=== PATIENT | male | born 1980 | race Caucasian/White ===

== ENCOUNTER 2016-06-14 11:13 | Emergency (ER) | payer BC, OTHER ==
--- NOTE | 2016-06-14 12:37 | ED CLINICAL REPORT ---
Clinical Report - Physicians/Mid Levels [facility] [address] [place] [address] 06/14/2016 11:19 [id number] Time Seen: 12:04 Jun 14 2016. Arrived- By private vehicle. Historian- patient. HISTORY OF PRESENT ILLNESS Chief Complaint: (pain to r/l great toe). The injury happened 2 days. Patient is experiencing mild pain. (Patient reports pain worsening over the last 7 days to the right and great toe. Reports history of similar. He was taking Motrin at home without relief. Denies any trauma. Denies fevers or chills. Denies any drainage. Reports has been self medicating with beer). REVIEW OF SYSTEMS All systems otherwise negative, except as recorded above. PAST HISTORY The patient has not had a prior injury to the same area. Problems: Sprain. Prior Injury, Same Area. Lifestyle / Substance Problems. Myofascial Strain. Anxiety Reaction. Back Injury. Back Pain. Dental Pain. Dental Caries. Hypertension. Asthma. Bronchitis. Depression. Gastritis. Glaucoma. Gout. Tetanus Status. Immunizations. Additional Surgeries: Abdominal Hernia Repair. Ankle surgery x 4. Hernia Repair. Medications: Ibuprofen Oral, PRN. Allergies: No Known Drug Allergy. SOCIAL HISTORY Smoker- current status unknown. Alcohol use. ADDITIONAL NOTES The nursing notes have been reviewed. PHYSICAL EXAM Vital Signs: 06/14/2016 11:27 BP: 150/86. HR: 111. RR: 18. O2 saturation: 97%. Temp: 98.2 F. Appearance: Alert. Head: Head atraumatic. CVS: Tachycardia. Heart sounds normal. Respiratory: No respiratory distress. Breath sounds normal. Skin: Skin intact. Skin warm. Extremities: Base of the right 5th metatarsal. No tenderness. Right dorsal foot. No tenderness or swelling. Left dorsal foot. No tenderness. Right great toe: tenderness and mild erythema of the proximal phalanx. No puncture wound or deformity. No subungual hematoma. Left great toe: mild erythema and tenderness of the proximal phalanx. No ecchymosis or foreign body. No limitation in movement. No subungual hematoma or amputation. Right heel. No tenderness. Neuro, Vascular and Tendons: Vascular status intact. Motor intact. Gait: Normal gait. PROGRESS AND PROCEDURES Course of Care: there is no warmth to the area, most consistent with prior history of gout, we'll treat for such. Patient reports he can colchicine and allopurinol in the past, however has not had good follow-up with his primary care provider. there has been no trauma. No drainage, no abscess. No fluctuance. Patient is stable. Patient/family counseled. Disposition: Discharged. CLINICAL IMPRESSION Acute gout with polyarthritis. INSTRUCTIONS ( [facility]). Prescription Medications: Hydrocodone/APAP 5mg / 325mg: take 1 orally every 6 hours. Dispense ten (10). No refill. Indomethacin 25 mg capsules: take 1-2 capsules orally every 6 hours for 5 days, as needed for pain or swelling. Dispense twenty (20). Colchicine. Dispense fifteen (15). No refills. (Initial: 1.2 mg at the first sign of flare, followed in 1 hour with a single dose of 0.6 . Then one tab po bid for 5 days. qt of 15) Follow-up: Follow up with your doctor in three days. Follow-up with: Nelly Lares MD, Family Practice, , [facility], [address] [place] [address] Follow up. Call for the next available appointment. (Electronically signed by Janna Schneider P.A.-C 06/14/2016 13:51)
--- NOTE | 2016-06-14 12:37 | ED NURSING NOTES ---
Clinical Report - Nurses [facility] [address] [place] [address] 06/14/2016 11:19 [id number] TRI[facility] Triage time 11:27. Acuity: LEVEL 4. Chief Complaint: RIGHT LOWER EXTREMITY PAIN. Location of symptoms- (Feet bilat red, pain in the toe area. Lt foot pain in the ankle). LEFT LOWER EXTREMITY PAIN. Alert. No acute distress. SEPSIS SCREEN: Sepsis Screen: negative. Negative (no infection suspected/documented). GORDON COMA SCORE: [place] Coma Scale: 15- eyes open spontaneously (4); best verbal response- oriented x 4 (5); best motor response- obeys commands (6). --11:34 Briseida Mitchell R.N. 11:27 06/14/16. BP: 150/86 taken on the left arm, while sitting. HR: 111. RR: 18. O2 saturation: 97%. Temp: 98.2 F. --11:34 Briseida Mitchell R.N. Weight: 127 kg. Height/Length: 71 inches Per Patient. BMI: 39.1. --11:28 Briseida Mitchell R.N. Medications Ibuprofen Oral, PRN. --11:32 Briseida Mitchell R.N. Allergies No Known Drug Allergy. --11:32 Briseida Mitchell R.N. Medication/allergy information source: the patient. --11:34 Briseida Mitchell R.N. History Arrived by private vehicle. Historian: patient. No primary care physician. No injury occurred. This occurred (2 days ago). It is described as radiating (toes to the ankle). Provoking / relieving factors: worsened by standing and walking; relieved by sitting, lying down and Rx meds. The patient has had trouble walking. The patient has been limping when trying to walk. He has had similar symptoms previously. 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 PAST MEDICAL HX: Tetanus status: unknown. SOCIAL HX: Heavy tobacco smoker (cigarette)- less than 1 pack per day. Alcohol use; consumes beer weekly. No drug use. FALL RISK ASSESSMENT: Fall risk assessment completed. No fall risk identified. NUTRITIONAL RISK ASSESSMENT: The nutritional risk assessment revealed no deficiencies. FUNCTIONAL ASSESSMENT: Functional assessment: no impairments noted. LEARNING NEEDS ASSESSMENT: The learning needs assessment revealed no barriers. SKIN INTEGRITY ASSESSMENT: Skin integrity risk assessment completed. No skin integrity risk identified. --11:34 Briseida Mitchell R.N. PROBLEMS: Sprain. Prior Injury, Same Area. Lifestyle / Substance Problems. Myofascial Strain. Anxiety Reaction. Back Injury. Back Pain. Dental Pain. Dental Caries. Hypertension. Asthma. Bronchitis. Depression. Gastritis. Glaucoma. Gout. Tetanus Status. --11:33 Briseida Mitchell R.N. Carpal Tunnel Syndrome [RuleOut]. --11:33 Briseida Mitchell R.N. ADDITIONAL SURGERIES: Abdominal Hernia Repair. Ankle surgery x 4. Hernia Repair. --11:33 Briseida Mitchell R.N. Interventions ID band on patient. To room. --11:34 Briseida Mitchell R.N. PHYSICAL ASSESSMENT Ambulatory to room. GENERAL / NEURO / PSYCH: Appears in pain and anxious. EXTREMITIES: Erythema on the extremities. Limited ROM present. Increased warmth on the extremities. Lower extremity edema. Right ankle. Right foot. Left ankle. Left foot. SKIN: Skin is warm and dry. --11:36 Briseida Mitchell R.N. NURSING PROGRESS NOTES Extremity elevated. Two patient identifiers checked. Call light placed in reach. Side rails up x 1. Bed placed in lowest position. Brakes of bed on. Patient ready for evaluation. --11:36 Briseida Mitchell R.N. DISPOSITION / DISCHARGE 12:45. Reviewed medication(s) side effects, precautions, dosing and course information. Prescription(s) given to the patient. Patient verbalized understanding. Written instructions provided in Marshallese. The patient was discharged home. He left the Emergency Department ambulatory and via private vehicle. Patient driving. Medication list reviewed and validated. --20:24 Briseida Mitchell R.N. 12:45 06/14/16. BP: 140/70. HR: 98. RR: 18. O2 saturation: 99%. Temp: deferred. Pain level now: 12/11. 11:27 06/14/16. BP: 150/86 taken on the left arm, while sitting. HR: 111. RR: 18. O2 saturation: 97%. Temp: 98.2 F. --20:24 Briseida Mitchell R.N. Locked/Released at 06/15/2016 22:45 by Briseida Mitchell R.N.
--- NOTE | 2016-06-14 12:37 | ED NURSING NOTES ---
Clinical Report - Nurses [facility] [address] [place] [address] 06/14/2016 11:19 [id number] TRI[facility] Triage time 11:27. Acuity: LEVEL 4. Chief Complaint: RIGHT LOWER EXTREMITY PAIN. Location of symptoms- (Feet bilat red, pain in the toe area. Lt foot pain in the ankle). LEFT LOWER EXTREMITY PAIN. Alert. No acute distress. SEPSIS SCREEN: Sepsis Screen: negative. Negative (no infection suspected/documented). GORDON COMA SCORE: [place] Coma Scale: 15- eyes open spontaneously (4); best verbal response- oriented x 4 (5); best motor response- obeys commands (6). --11:34 Briseida Mitchell R.N. 11:27 06/14/16. BP: 150/86 taken on the left arm, while sitting. HR: 111. RR: 18. O2 saturation: 97%. Temp: 98.2 F. --11:34 Briseida Mitchell R.N. Weight: 127 kg. Height/Length: 71 inches Per Patient. BMI: 39.1. --11:28 Briseida Mitchell R.N. Medications Ibuprofen Oral, PRN. --11:32 Briseida Mitchell R.N. Allergies No Known Drug Allergy. --11:32 Briseida Mitchell R.N. Medication/allergy information source: the patient. --11:34 Briseida Mitchell R.N. History Arrived by private vehicle. Historian: patient. No primary care physician. No injury occurred. This occurred (2 days ago). It is described as radiating (toes to the ankle). Provoking / relieving factors: worsened by standing and walking; relieved by sitting, lying down and Rx meds. The patient has had trouble walking. The patient has been limping when trying to walk. He has had similar symptoms previously. 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 PAST MEDICAL HX: Tetanus status: unknown. SOCIAL HX: Heavy tobacco smoker (cigarette)- less than 1 pack per day. Alcohol use; consumes beer weekly. No drug use. FALL RISK ASSESSMENT: Fall risk assessment completed. No fall risk identified. NUTRITIONAL RISK ASSESSMENT: The nutritional risk assessment revealed no deficiencies. FUNCTIONAL ASSESSMENT: Functional assessment: no impairments noted. LEARNING NEEDS ASSESSMENT: The learning needs assessment revealed no barriers. SKIN INTEGRITY ASSESSMENT: Skin integrity risk assessment completed. No skin integrity risk identified. --11:34 Briseida Mitchell R.N. PROBLEMS: Sprain. Prior Injury, Same Area. Lifestyle / Substance Problems. Myofascial Strain. Anxiety Reaction. Back Injury. Back Pain. Dental Pain. Dental Caries. Hypertension. Asthma. Bronchitis. Depression. Gastritis. Glaucoma. Gout. Tetanus Status. --11:33 Briseida Mitchell R.N. Carpal Tunnel Syndrome [RuleOut]. --11:33 Briseida Mitchell R.N. ADDITIONAL SURGERIES: Abdominal Hernia Repair. Ankle surgery x 4. Hernia Repair. --11:33 Briseida Mitchell R.N. Interventions ID band on patient. To room. --11:34 Briseida Mitchell R.N. PHYSICAL ASSESSMENT Ambulatory to room. GENERAL / NEURO / PSYCH: Appears in pain and anxious. EXTREMITIES: Erythema on the extremities. Limited ROM present. Increased warmth on the extremities. Lower extremity edema. Right ankle. Right foot. Left ankle. Left foot. SKIN: Skin is warm and dry. --11:36 Briseida Mitchell R.N. NURSING PROGRESS NOTES Extremity elevated. Two patient identifiers checked. Call light placed in reach. Side rails up x 1. Bed placed in lowest position. Brakes of bed on. Patient ready for evaluation. --11:36 Briseida Mitchell R.N. DISPOSITION / DISCHARGE 12:45. Reviewed medication(s) side effects, precautions, dosing and course information. Prescription(s) given to the patient. Patient verbalized understanding. Written instructions provided in Swazi. The patient was discharged home. He left the Emergency Department ambulatory and via private vehicle. Patient driving. Medication list reviewed and validated. --20:24 Briseida Mitchell R.N. 12:45 06/14/16. BP: 140/70. HR: 98. RR: 18. O2 saturation: 99%. Temp: deferred. Pain level now: 12/11. 11:27 06/14/16. BP: 150/86 taken on the left arm, while sitting. HR: 111. RR: 18. O2 saturation: 97%. Temp: 98.2 F. --20:24 Briseida Mitchell R.N. Locked/Released at 06/15/2016 22:45 by Briseida Mitchell R.N.
--- NOTE | 2016-06-14 12:37 | ED CLINICAL REPORT ---
Clinical Report - Physicians/Mid Levels [facility] [address] [place] [address] 06/14/2016 11:19 [id number] Time Seen: 12:04 Jun 14 2016. Arrived- By private vehicle. Historian- patient. HISTORY OF PRESENT ILLNESS Chief Complaint: (pain to r/l great toe). The injury happened 2 days. Patient is experiencing mild pain. (Patient reports pain worsening over the last 7 days to the right and great toe. Reports history of similar. He was taking Motrin at home without relief. Denies any trauma. Denies fevers or chills. Denies any drainage. Reports has been self medicating with beer). REVIEW OF SYSTEMS All systems otherwise negative, except as recorded above. PAST HISTORY The patient has not had a prior injury to the same area. Problems: Sprain. Prior Injury, Same Area. Lifestyle / Substance Problems. Myofascial Strain. Anxiety Reaction. Back Injury. Back Pain. Dental Pain. Dental Caries. Hypertension. Asthma. Bronchitis. Depression. Gastritis. Glaucoma. Gout. Tetanus Status. Immunizations. Additional Surgeries: Abdominal Hernia Repair. Ankle surgery x 4. Hernia Repair. Medications: Ibuprofen Oral, PRN. Allergies: No Known Drug Allergy. SOCIAL HISTORY Smoker- current status unknown. Alcohol use. ADDITIONAL NOTES The nursing notes have been reviewed. PHYSICAL EXAM Vital Signs: 06/14/2016 11:27 BP: 150/86. HR: 111. RR: 18. O2 saturation: 97%. Temp: 98.2 F. Appearance: Alert. Head: Head atraumatic. CVS: Tachycardia. Heart sounds normal. Respiratory: No respiratory distress. Breath sounds normal. Skin: Skin intact. Skin warm. Extremities: Base of the right 5th metatarsal. No tenderness. Right dorsal foot. No tenderness or swelling. Left dorsal foot. No tenderness. Right great toe: tenderness and mild erythema of the proximal phalanx. No puncture wound or deformity. No subungual hematoma. Left great toe: mild erythema and tenderness of the proximal phalanx. No ecchymosis or foreign body. No limitation in movement. No subungual hematoma or amputation. Right heel. No tenderness. Neuro, Vascular and Tendons: Vascular status intact. Motor intact. Gait: Normal gait. PROGRESS AND PROCEDURES Course of Care: there is no warmth to the area, most consistent with prior history of gout, we'll treat for such. Patient reports he can colchicine and allopurinol in the past, however has not had good follow-up with his primary care provider. there has been no trauma. No drainage, no abscess. No fluctuance. Patient is stable. Patient/family counseled. Disposition: Discharged. CLINICAL IMPRESSION Acute gout with polyarthritis. INSTRUCTIONS ( [facility]). Prescription Medications: Hydrocodone/APAP 5mg / 325mg: take 1 orally every 6 hours. Dispense ten (10). No refill. Indomethacin 25 mg capsules: take 1-2 capsules orally every 6 hours for 5 days, as needed for pain or swelling. Dispense twenty (20). Colchicine. Dispense fifteen (15). No refills. (Initial: 1.2 mg at the first sign of flare, followed in 1 hour with a single dose of 0.6 . Then one tab po bid for 5 days. qt of 15) Follow-up: Follow up with your doctor in three days. Follow-up with: Nelly Lares MD, Family Practice, , [facility], [address] [place] [address] Follow up. Call for the next available appointment. (Electronically signed by Janna Schneider P.A.-C 06/14/2016 13:51)
--- NOTE | 2016-06-15 22:45 | ED MAR SUMMARY ---
..... Medication Administration Record [facility] [address] [place], [place] [id number] Patient: LEIDY PFEIFFER Visit ID: [id number] 35y, M Weight: 127.0 kg Height/Length: 71 in BMI: 39.1 ALLERGIES: No Known Drug Allergy
--- NOTE | 2016-06-15 22:45 | ED MED RECONCILIATION SUMMARY ---
Patient: LEIDY PFEIFFER Medication Reconciliation Report [facility] VisitID: [id number] [address] [place] [address] 35y, M Registration Date/Time: 06/14/2016 Weight: 127.0 kg Height/Length: 71 in. BMI: 39.1 ALLERGIES: No Known Drug Allergy The patient's Home Medications are listed below: THE FOLLOWING MEDICATIONS NEED TO BE RECONCILED: Ibuprofen Oral, PRN The source(s) of the original Home Medication information: patient The following Medications were given to the patient in the Emergency Department: None. The following Medications were prescribed to the patient: Hydrocodone/APAP 5mg / 325mg: take 1 orally every 6 hours. Dispense ten (10). No refill. -- Janna Schneider, P.A.-C Indomethacin 25 mg capsules: take 1-2 capsules orally every 6 hours for 5 days, as needed for pain or swelling. Dispense twenty (20). -- Janna Schneider, P.A.-C Colchicine. Dispense fifteen (15). No refills.(Initial: 1.2 mg at the first sign of flare, followed in 1 hour with a single dose of 0.6 . Then one tab po bid for 5 days. qt of 15) -- Janna Schneider, P.A.-C
--- NOTE | 2016-06-15 22:45 | ED MED RECONCILIATION SUMMARY ---
Patient: LEIDY PFEIFFER Medication Reconciliation Report [facility] VisitID: [id number] [address] [place] [address] 35y, M Registration Date/Time: 06/14/2016 Weight: 127.0 kg Height/Length: 71 in. BMI: 39.1 ALLERGIES: No Known Drug Allergy The patient's Home Medications are listed below: THE FOLLOWING MEDICATIONS NEED TO BE RECONCILED: Ibuprofen Oral, PRN The source(s) of the original Home Medication information: patient The following Medications were given to the patient in the Emergency Department: None. The following Medications were prescribed to the patient: Hydrocodone/APAP 5mg / 325mg: take 1 orally every 6 hours. Dispense ten (10). No refill. -- Janna Schneider, P.A.-C Indomethacin 25 mg capsules: take 1-2 capsules orally every 6 hours for 5 days, as needed for pain or swelling. Dispense twenty (20). -- Janna Schneider, P.A.-C Colchicine. Dispense fifteen (15). No refills.(Initial: 1.2 mg at the first sign of flare, followed in 1 hour with a single dose of 0.6 . Then one tab po bid for 5 days. qt of 15) -- Janna Schneider, P.A.-C
--- NOTE | 2016-06-15 22:45 | ED DISCHARGE INSTRUCTIONS ---
Patient: LEIDY PFEIFFER General Instructions [facility] VisitID: [id number] [address] [place] [address] 35y, M Registration Date/Time: 06/14/2016 Acute gout with polyarthritis. INSTRUCTIONS ( [facility]). Prescription Medications: Hydrocodone/APAP 5mg / 325mg: take 1 orally every 6 hours. Dispense ten (10). No refill. Indomethacin 25 mg capsules: take 1-2 capsules orally every 6 hours for 5 days, as needed for pain or swelling. Dispense twenty (20). Colchicine. Dispense fifteen (15). No refills. (Initial: 1.2 mg at the first sign of flare, followed in 1 hour with a single dose of 0.6 . Then one tab po bid for 5 days. qt of 15) Follow-up: Follow up with your doctor in three days. Follow-up with: Nelly Lares MD, [facility], , [facility], [address] [place] [address] Follow up. Call for the next available appointment. ADDITIONAL INFORMATION Gout Gout or "gouty arthritis" is an inflammation of a joint due to a build-up of gout crystals in the joint fluid. This occurs when there is an excess uric acid (a normal waste product) in the body. Uric acid builds up in the body when the kidneys are unable to filter enough of it from the blood. This may occur with aging or kidney disease. Gout occurs more often in persons with obesity, diabetes, hypertension, high fats in the blood. It may be present in other family members. Alcohol and certain foods (such as shellfish and alcohol) may increase uric acid levels in the blood and cause a gout attack. Gout causes a hot, red, swollen and painful joint. If you have had one episode of gout, you are likely to have another. An acute attack of gout can be treated with anti-inflammatory and other medicine. If these attacks become frequent it may be necessary to take a daily medicine to help the kidney remove uric acid from the body. Home Care: Apply an ice pack (ice cubes in a plastic bag, wrapped in a towel) over the injured area for 20 minutes every 1-2 hours the first day for pain relief. Continue this 3-4 times a day until the pain and swelling goes away. Avoid alcohol and foods listed below (see Prevention) during a gout attack. Drink extra fluid to help flush the uric acid through your kidneys. Rest painful joints. If gout affects the joints of your foot or leg, you may want to use crutches for the first few days to keep from bearing weight on the foot or leg. Take anti-inflammatory medicine as directed. You may be prescribed Indocin (indomethacin), or [id number] drugs such as ibuprofen (Motrin, Advil) or naproxen (Naprosyn or Aleve). Tylenol will not be as effective since it is not an anti-inflammatory drug. If narcotic pain medicines have been prescribed, they should be used in addition to the anti-inflammatory drugs and only for severe pain. Avoid aspirin since this may slow down the flushing of the uric acid through your kidneys. Preventing Future Attacks: Minimize or avoid alcohol use. Excess alcohol intake can cause a gout attack. Foods high in purine form uric acid in the body and increase your risk for a gout attack. Therefore, avoid the following foods: certain seafoods (anchovies, sardines, shrimp, scallops, thapa, mackerel); wild game, meat extracts and meat gravies; organ foods (kidney, liver, calf brain, sweetbreads). Avoid drinks with fructose (a type of sugar). Limit the following foods to one serving a day: red meat and pork, fish, poultry, dried beans and peas, asparagus, mushrooms, cauliflower and spinach. If you are overweight, this is a risk factor and you should talk to your doctor about a weight reduction plan. However, avoid fasting or extreme low calorie diets (less than 900 shnanan/day) which will increase uric acid levels in the body. If you are diabetic or have high blood pressure, work with your doctor to achieve control of these conditions. Avoid injury to the involved joint since this can lead to a gout attack. Colchicine can be effective in stopping a gout attack. If you were given a prescription of this medicine for future use, begin it at the first sign of an attack. Colchicine may cause nausea, vomiting, diarrhea and other side effects. Follow Up with your doctor as advised or if you are not improving after three days of treatment. Get Prompt Medical Attention if any of the following occur: Fever over 100.4F (38.0C) with worsening joint pain Increasing redness around the joint Pain developing in another joint Repeated vomiting, abdominal pain, or blood in the vomit or stool (black or red color) You have been given the following additional information: Gouty Arthritis (Electronically signed by Janna Schneider P.A.-C 06/14/2016 13:51)
--- NOTE | 2016-06-15 22:45 | ED MAR SUMMARY ---
..... Medication Administration Record [facility] [address] [place], [place] [id number] Patient: LEIDY PFEIFFER Visit ID: [id number] 35y, M Weight: 127.0 kg Height/Length: 71 in BMI: 39.1 ALLERGIES: No Known Drug Allergy
--- NOTE | 2016-06-15 22:45 | ED DISCHARGE INSTRUCTIONS ---
Patient: LEIDY PFEIFFER General Instructions Formerly [facility] VisitID: [id number] [address] [place] [address] 35y, M Registration Date/Time: 06/14/2016 Acute gout with polyarthritis. INSTRUCTIONS ( [facility]). Prescription Medications: Hydrocodone/APAP 5mg / 325mg: take 1 orally every 6 hours. Dispense ten (10). No refill. Indomethacin 25 mg capsules: take 1-2 capsules orally every 6 hours for 5 days, as needed for pain or swelling. Dispense twenty (20). Colchicine. Dispense fifteen (15). No refills. (Initial: 1.2 mg at the first sign of flare, followed in 1 hour with a single dose of 0.6 . Then one tab po bid for 5 days. qt of 15) Follow-up: Follow up with your doctor in three days. Follow-up with: Nelly Lares MD, [facility], , [facility], [address] [place] [address] Follow up. Call for the next available appointment. ADDITIONAL INFORMATION Gout Gout or "gouty arthritis" is an inflammation of a joint due to a build-up of gout crystals in the joint fluid. This occurs when there is an excess uric acid (a normal waste product) in the body. Uric acid builds up in the body when the kidneys are unable to filter enough of it from the blood. This may occur with aging or kidney disease. Gout occurs more often in persons with obesity, diabetes, hypertension, high fats in the blood. It may be present in other family members. Alcohol and certain foods (such as shellfish and alcohol) may increase uric acid levels in the blood and cause a gout attack. Gout causes a hot, red, swollen and painful joint. If you have had one episode of gout, you are likely to have another. An acute attack of gout can be treated with anti-inflammatory and other medicine. If these attacks become frequent it may be necessary to take a daily medicine to help the kidney remove uric acid from the body. Home Care: Apply an ice pack (ice cubes in a plastic bag, wrapped in a towel) over the injured area for 20 minutes every 1-2 hours the first day for pain relief. Continue this 3-4 times a day until the pain and swelling goes away. Avoid alcohol and foods listed below (see Prevention) during a gout attack. Drink extra fluid to help flush the uric acid through your kidneys. Rest painful joints. If gout affects the joints of your foot or leg, you may want to use crutches for the first few days to keep from bearing weight on the foot or leg. Take anti-inflammatory medicine as directed. You may be prescribed Indocin (indomethacin), or [id number]-nsukhus drugs such as ibuprofen (Motrin, Advil) or naproxen (Naprosyn or Aleve). Tylenol will not be as effective since it is not an anti-inflammatory drug. If narcotic pain medicines have been prescribed, they should be used in addition to the anti-inflammatory drugs and only for severe pain. Avoid aspirin since this may slow down the flushing of the uric acid through your kidneys. Preventing Future Attacks: Minimize or avoid alcohol use. Excess alcohol intake can cause a gout attack. Foods high in purine form uric acid in the body and increase your risk for a gout attack. Therefore, avoid the following foods: certain seafoods (anchovies, sardines, shrimp, scallops, thapa, mackerel); wild game, meat extracts and meat gravies; organ foods (kidney, liver, calf brain, sweetbreads). Avoid drinks with fructose (a type of sugar). Limit the following foods to one serving a day: red meat and pork, fish, poultry, dried beans and peas, asparagus, mushrooms, cauliflower and spinach. If you are overweight, this is a risk factor and you should talk to your doctor about a weight reduction plan. However, avoid fasting or extreme low calorie diets (less than 900 shannan/day) which will increase uric acid levels in the body. If you are diabetic or have high blood pressure, work with your doctor to achieve control of these conditions. Avoid injury to the involved joint since this can lead to a gout attack. Colchicine can be effective in stopping a gout attack. If you were given a prescription of this medicine for future use, begin it at the first sign of an attack. Colchicine may cause nausea, vomiting, diarrhea and other side effects. Follow Up with your doctor as advised or if you are not improving after three days of treatment. Get Prompt Medical Attention if any of the following occur: Fever over 100.4F (38.0C) with worsening joint pain Increasing redness around the joint Pain developing in another joint Repeated vomiting, abdominal pain, or blood in the vomit or stool (black or red color) You have been given the following additional information: Gouty Arthritis (Electronically signed by Janna Schneider P.A.-C 06/14/2016 13:51)
== END 2016-06-14 12:45 | disposition home or self-care (01) ==
LOC: ED SRH 11:13
DX: M10.9 Gout, unspecified (principal); I10 Essential (primary) hypertension